=== PATIENT | male | born 1995 | race Caucasian/White ===

== ENCOUNTER 2019-12-25 04:29 | Emergency (ER) | payer OTHER ==
[~2019-12-25] VITALS: Ht 167.6 cm; Wt 65.9 kg
[~2019-12-25 04:29] MED LIST: ALPR1TAB5 PO; TRAZ-175 PO; ZIPR20CA2 PO
[2019-12-25 04:36] VITALS: BP 154/92
[2019-12-25] MEDS ORDERED: ACETAMINOPHEN 325 MG TABLET ONE (04:57)
[2019-12-25] MEDS ORDERED: ACETAMINOPHEN 325 MG TABLET PO ONE (05:00)
== END 2019-12-25 06:42 | disposition home or self-care (01) ==
LOC: ED 06:36
DX: S29.012A Strain of muscle and tendon of back wall of thorax, initial encounter (principal); F20.9 Schizophrenia, unspecified; Y04.0XXA Assault by unarmed brawl or fight, initial encounter; Y93.89 Activity, other specified; Y92.89 Other specified places as the place of occurrence of the external cause; Y99.8 Other external cause status
CPT/HCPCS: 72072; 99283

== ENCOUNTER 2020-01-22 21:52 | Inpatient (IN) | payer MEDICARE, MEDICAID ==
[~2020-01-22] VITALS: Ht 160 cm; Wt 66.1 kg
--- NOTE | 2020-01-22 23:48 | NUR ---
CT results show fx. Dr. Hernández in room now.
--- NOTE | 2020-01-23 00:05 | NUR ---
Patient states he did not file a police report and states he does not want to.
[2020-01-23] MEDS ORDERED: NICOTINE 21 MG/24 HR PATCH.TD24 TD SCH (00:30)
[2020-01-23] MEDS ORDERED: morphine SULFATE 10 MG/ML, 1ML IVPush PRN (00:30)
[2020-01-23] MEDS ORDERED: BISACODYL 10 MG SUPP PR PRN (00:30)
[2020-01-23] MEDS ORDERED: ONDANSETRON 2MG/ML, 2ML IVPush PRN (00:30)
[2020-01-23] MEDS ORDERED: BUPR-173 PO (01:06)
[2020-01-23] MEDS ORDERED: OLAN20TA14 PO (01:06)
[2020-01-23] MEDS ORDERED: OLAN5TAB9 PO (01:06)
[2020-01-23 01:27] VITALS: BP 147/92
[2020-01-23 07:22] VITALS: BP 137/87
[2020-01-23 08:27] LABS: BASOPHILS # (AUTO) 0.06 x10^3/uL (0-0.1); BASOPHILS % (AUTO) 1 % (0-1); EOSINOPHILS # (AUTO) 0.11 x10^3/uL (0-0.4); EOSINOPHILS % (AUTO) 1 % (1-7); LYMPHOCYTES # (AUTO) 1.49 x10^3/uL (1-3.4); LYMPHOCYTES % (AUTO) 13 % (22-44); MD NO; MEAN CORPUSCULAR HEMOGLOBIN 30.4 pg (27.5-34.5); MEAN CORPUSCULAR HGB CONC 33.5 g/dL (33.2-36.2); MEAN CORPUSCULAR VOLUME 90.6 fL (81-97); MEAN PLATELET VOLUME 8.1 fL (7.4-10.4); MONOCYTES # (AUTO) 0.77 x10^3/uL (0.2-0.8); MONOCYTES % (AUTO) 7 % (2-9); NEUTROPHILS # (AUTO) 8.87 x10^3/uL (1.8-6.8); NEUTROPHILS % (AUTO) 79 % (42-75); PLATELET COUNT 328 x10^3/uL (130-400); RED BLOOD COUNT 5.29 x10^6/uL (4.38-5.82); RED CELL DISTRIBUTION WIDTH 14.1 % (9.4-14.8)
[2020-01-23 08:33] LABS: ALANINE AMINOTRANSFERASE 25 U/L (12-78); ALBUMIN 3.9 g/dL (3.4-5.0); ANION GAP 6 mmol/L (5-15); CALCIUM 9.2 mg/dL (8.5-10.1); CHLORIDE 109 mmol/L (98-107); CREATININE 0.84 mg/dL (0.7-1.3)
[2020-01-23 08:36] LABS: ALKALINE PHOSPHATASE 56 U/L (45-117); BILIRUBIN,TOTAL 1.1 mg/dL (0.2-1.0); TOTAL PROTEIN 7.6 g/dL (6.4-8.2)
[2020-01-23] MEDS ORDERED: SODIUM CHLORIDE FLUSH 10ML SYR IVF SCH (09:00)
[2020-01-23] MEDS ORDERED: LIDOCAINE 1%-EPI 1:100K, 20ML ONE (09:18)
[2020-01-23] MEDS ORDERED: BALANCED SALT OPHTH IRRIG SOLN 18ML ONE (09:18)
[2020-01-23] MEDS ORDERED: MUPIROCIN OINT 2%, 22GM ONE (09:18)
[2020-01-23] MEDS ORDERED: CHLORHEXIDINE 15 ML UDC MM STA (10:01)
[2020-01-23] MEDS ORDERED: CHLORHEXIDINE 15 ML UDC ONE (10:05)
[2020-01-23] MEDS ORDERED: MIDAZOLAM 1 MG/ML, 2ML ONE (11:18)
[2020-01-23] MEDS ORDERED: FENTANYL PF 250 MCG/5ML ONE (11:19)
[2020-01-23] MEDS ORDERED: SUCCINYLCHOLINE 20 MG/ML, 10ML ONE (11:38)
[2020-01-23] MEDS ORDERED: ROCURONIUM 10 MG/ML,10ML ONE (11:38)
[2020-01-23] MEDS ORDERED: PROPOFOL 10 MG/ML, 20ML ONE (12:07)
[2020-01-23] MEDS ORDERED: DEXAMETHASONE 4 MG/ML, 1ML ONE (12:07)
[2020-01-23] MEDS ORDERED: ONDANSETRON 2MG/ML, 2ML ONE (12:07)
[2020-01-23] MEDS ORDERED: CEFAZOLIN 1,000 MG ONE (12:07)
[2020-01-23] MEDS ORDERED: LIDOCAINE-MPF 2% ,5ML ONE ×2 (12:08)
[2020-01-23 13:27] VITALS: BP 134/97
[2020-01-23] MEDS ORDERED: OXYcodone 5 MG/5 ML ORAL.SOL UDC PO PRN (13:30)
[2020-01-23] MEDS ORDERED: FENTANYL PF 100 MCG/2ML IV PRN (13:30)
[2020-01-23] MEDS ORDERED: ACETAMINOPHEN 500 MG TABLET PO PRN (14:00)
[2020-01-23] MEDS ORDERED: OXYcodone IR 5MG TABLET PO PRN (14:00)
[2020-01-23] MEDS ORDERED: ACET500T64 PO (14:42)
== END 2020-01-23 17:17 | disposition home or self-care (01) | DRG 131 ==
LOC: ED 22:23 → EDIP 01-23 00:24 → 3N 01-23 01:11
PROVIDERS: ADMIT Family Medicine; ATTEND Internal Medicine
PROC: 0NS Head and Facial Bones, Reposition (ICD-10-PCS; principal; 2020-01-23 10:30)
DX: S02.40FA Zygomatic fracture, left side, initial encounter for closed fracture (principal); F20.0 Paranoid schizophrenia; D72.829 Elevated white blood cell count, unspecified; F17.210 Nicotine dependence, cigarettes, uncomplicated; Z59.0 Homelessness; Y08.89XA Assault by other specified means, initial encounter; Y93.89 Activity, other specified; Y92.89 Other specified places as the place of occurrence of the external cause; Y99.8 Other external cause status
CPT/HCPCS: 36415; 70486; 80053; 85025; 99285; G0378; J0690; J1100; J2250; J2405; J2704; J3010; J3490; J0330